=== PATIENT | female | born 1930 | race Caucasian/White ===

== ENCOUNTER 2018-08-03 16:43 | Emergency (ER) | payer MEDICARE ==
[~2018-08-03] VITALS: Ht 167.6 cm; Wt 71.0 kg
[2018-08-03 17:52] LABS: BASOPHILS # (AUTO) 0.1 X10'3 (0-0.2); BASOPHILS % (AUTO) 0.6 % (0-1); EOSINOPHILS # (AUTO) 2.7 X10'3 (0-0.9); EOSINOPHILS % (AUTO) 22.3 % (0-6); HEMATOCRIT 37.6 % (35.0-45.0); HEMOGLOBIN 12.1 g/dl (12.0-16.0); LYMPHOCYTES # (AUTO) 1.9 X10'3 (1.1-4.8); LYMPHOCYTES % (AUTO) 16.4 % (21-51); MEAN CORPUSCULAR HGB CONC 32.3 g/dL (33.0-36.5); MEAN CORPUSCULAR VOLUME 86.8 FL (78-98); MEAN PLATELET VOLUME 8.4 FL (7.4-10.4); MONOCYTES # (AUTO) 0.8 X10'3 (0-0.9); MONOCYTES % (AUTO) 7.1 % (2-12); NEUTROPHILS # (AUTO) 6.4 X10'3 (1.8-7.7); NEUTROPHILS % (AUTO) 53.6 % (42-75); PLATELET COUNT 361 X10'3 (140-440); RED BLOOD COUNT 4.33 X10'6 (4.20-5.60); RED CELL DISTRIBUTION WIDTH 15.5 % (11.5-14.5); WHITE BLOOD COUNT 11.9 X10'3 (4.5-11.0)
[2018-08-03 18:05] LABS: ALANINE AMINOTRANSFERASE 26 U/L (12-78); ALBUMIN 2.9 G/DL (3.4-5.0); ALBUMIN/GLOBULIN RATIO 0.6 (1.1-1.5); ALKALINE PHOSPHATASE 74 IU/L (46-116); ANION GAP 7 (8-16); ASPARTATE AMINO TRANSFERASE 20 U/L (10-37); BILIRUBIN,TOTAL 0.3 MG/DL (0.1-1.0); BLOOD UREA NITROGEN 19 MG/DL (7-18); BUN/CREATININE RATIO 20.9 (6.6-38.0); CALCIUM 9.3 MG/DL (8.5-10.1); CHLORIDE 100 MMOL/L (99-107); CREATININE 0.91 MG/DL (0.40-0.90); GLUCOSE 108 MG/DL (70-104); POTASSIUM 4.5 MMOL/L (3.5-5.1); SODIUM 136 MMOL/L (135-145); TOTAL CARBON DIOXIDE 28.7 MMOL/L (24-32); TOTAL PROTEIN 7.4 G/DL (6.4-8.2); eGFR 58 ML/MIN
[2018-08-03] MEDS ORDERED: piperacillin/tazo 3.375gm/50ml 50 ML IV ONE (18:50)
[2018-08-03] MEDS ORDERED: vancomycin/NS 1 GM ADD-VANTAGE 250 ML IV ONE (18:50)
[2018-08-03] MEDS ORDERED: LORazepam 2 mg/ml vial IV ONE (19:15)
[2018-08-03] MEDS ORDERED: normal saline 1000ML IV soln IVB ONE (19:15)
--- NOTE | 2018-08-03 19:20 | NUR ---
HUGO MCKEON IS POA CONTACT # [phone]
[2018-08-03] MEDS ORDERED: CLIN150C2 PO (20:14)
[2018-08-03] MEDS ORDERED: DOXY100C43 PO (20:14)
--- NOTE | 2018-08-03 20:37 | NUR ---
spoke with Codey over the phone update him on poc for pt. I let him know that pt will be going back to [facility], all questions answered. I also call [facility] and notified them that pt will be returning. [employer] [employer] has been called to transport pt.
[2018-08-03 20:40] VITALS: BP 110/82
[2018-08-05] MEDS ORDERED: ENAL20TA75 PO (02:16)
[2018-08-05] MEDS ORDERED: BUSP10TA11 PO (02:16)
[2018-08-05] MEDS ORDERED: ACET500C5 PO (02:16)
[2018-08-05] MEDS ORDERED: QUET25TA PO (02:20)
[2018-08-05] MEDS ORDERED: DOXY-257 PO (02:20)
[2018-08-05] MEDS ORDERED: METO-395 PO (02:20)
[2018-08-05] MEDS ORDERED: CLIN150C2 PO (02:20)
[2018-08-05] MEDS ORDERED: MELA1TAB28 PO (02:27)
[2018-08-05] MEDS ORDERED: MULT-16 PO (02:27)
[2018-08-05] MEDS ORDERED: TRAZ-218 PO (02:27)
[2018-08-05] MEDS ORDERED: LORA0.5T PO (02:27)
[2018-08-05] MEDS ORDERED: WHISKEY PO (02:27)
[2018-08-05] MEDS ORDERED: CHOL10002 PO (02:27)
[2018-08-05] MEDS ORDERED: ASPI-1265 PO (02:27)
[2018-08-07] MEDS ORDERED: LEVO500T2 PO (12:43)
== END 2018-08-03 21:51 | disposition home or self-care (01) ==
LOC: ER 16:45
DX: L03.115 Cellulitis of right lower limb (principal); F03.90 Unspecified dementia, unspecified severity, without behavioral disturbance, psychotic disturbance, mood disturbance, and anxiety; Z88.2 Allergy status to sulfonamides
CPT/HCPCS: 36415; 73630; 80053; 83605; 84145; 85025; 87040; 87070; 87077; 87186; 96365; 96368; 96375; 99285; J2060; J2543; J3370; J7030; 99284

== ENCOUNTER 2018-08-04 22:27 | Inpatient (IN) | payer MEDICARE | END 2018-08-07 15:35 | LOC: ER 22:27 → ED HOLD 08-05 01:52 → SUR 3N 08-05 05:40 | DX: E86.0 Dehydration (principal); W19.XXXA Unspecified fall, initial encounter; R21 Rash and other nonspecific skin eruption ==

== ENCOUNTER 2018-08-23 13:08 | Inpatient (IN) | payer MEDICARE ==
[~2018-08-23] VITALS: Ht 172.7 cm; Wt 55.0 kg
[~2018-08-23 13:08] MED LIST: ACET500C5 PO; ASPI-1265 PO; BUSP10TA11 PO; CHOL10002 PO; ENAL20TA75 PO; LORA0.5T PO; MELA1TAB28 PO; METO-395 PO; MULT-16 PO; QUET25TA PO; TRAZ-218 PO
--- NOTE | 2018-08-23 14:01 | NUR ---
patient placed on contact isolation r/o cdiff.
[2018-08-23] MEDS ORDERED: normal saline 1000ML IV soln IV ONE (14:05)
[2018-08-23] MEDS ORDERED: LORA0.5T PO (14:25)
[2018-08-23] MEDS ORDERED: ACET-2119 PO (14:26)
[2018-08-23] MEDS ORDERED: HYDR-3965 PO (14:28)
[2018-08-23] MEDS ORDERED: MELA3TAB PO (14:28)
[2018-08-23] MEDS ORDERED: ASPI81TA30 PO (14:29)
[2018-08-23] MEDS ORDERED: BUSP10TA3 PO (14:30)
[2018-08-23] MEDS ORDERED: ENAL20TA PO (14:30)
[2018-08-23] MEDS ORDERED: ACET-812 PO (14:31)
[2018-08-23] MEDS ORDERED: METO-539 PO (14:32)
[2018-08-23] MEDS ORDERED: MIRT15TA PO (14:33)
[2018-08-23 14:36] LABS: CLARITY,URINE SLIGHTLY CLOUDY (Clear); COLOR,URINE YELLOW (Yellow); GLUCOSE, URINE NEGATIVE (Neg); KETONES,URINE NEGATIVE (Neg); LEUKOCYTE ESTERASE ,URINE TRACE (Neg); NITRITES, URINE NEGATIVE (Neg); OCCULT BLOOD,URINE NEGATIVE (Neg); PROTEIN,URINE TRACE mg/dl (Neg); URINE HCG NEGATIVE (NEG); UROBILINOGEN,URINE 0.2 E.U/dL (0.2-1.0)
[2018-08-23] MEDS ORDERED: HYDR-3686 PO (14:37)
[2018-08-23] MEDS ORDERED: [UNRECOGNIZED DRUG - OTHER] TOP (14:39)
[2018-08-23] MEDS ORDERED: QUET25TA PO (14:40)
[2018-08-23] MEDS ORDERED: TRAZ-218 PO (14:41)
[2018-08-23] MEDS ORDERED: VIT1TABL50 PO (14:42)
[2018-08-23] MEDS ORDERED: CHOL100046 PO (14:42)
[2018-08-23 14:44] LABS: UA COLLECTION TYPE OTHER
[2018-08-23 14:46] LABS: BACTERIA,URINE FEW /HPF (Neg); MUCUS STRANDS FEW /LPF (Neg); RBC,URINE NONE SEEN /HPF (0-2); SQUAMOUS EPITHELIAL CELL,UR MANY /LPF (FEW); WBC,URINE 0-4 /HPF (0-4)
[2018-08-23 14:46] LABS: BASOPHILS % (AUTO) 0 % (0-1); EOSINOPHILS % (AUTO) 0.1 % (0-6); HEMATOCRIT 32.1 % (35.0-45.0); HEMOGLOBIN 10.2 g/dl (12.0-16.0); LYMPHOCYTES % (AUTO) 3.1 % (21-51); MEAN CORPUSCULAR HEMOGLOBIN 27.2 PG (27.0-31.0); MEAN CORPUSCULAR HGB CONC 31.8 g/dL (33.0-36.5); MEAN CORPUSCULAR VOLUME 85.3 FL (78-98); MEAN PLATELET VOLUME 9.1 FL (7.4-10.4); MONOCYTES # (AUTO) 1.9 X10'3 (0-0.9); MONOCYTES % (AUTO) 5.9 % (2-12); NEUTROPHILS % (AUTO) 90.9 % (42-75); PLATELET COUNT 363 X10'3 (140-440); RED BLOOD COUNT 3.77 X10'6 (4.20-5.60); RED CELL DISTRIBUTION WIDTH 17.3 % (11.5-14.5)
[2018-08-23 14:52] LABS: WHITE BLOOD COUNT 31.9 X10'3 (4.5-11.0)
[2018-08-23] MEDS ORDERED: CefTRIAXone 2gm/D5W 50ml 50 ML IV ONE (14:55)
[2018-08-23 15:06] LABS: INR 1.2 INR; PARTIAL THROMBOPLASTIN TIME 28 SECONDS (22-32)
[2018-08-23 15:13] LABS: ALANINE AMINOTRANSFERASE 50 U/L (12-78); ALBUMIN 2.1 G/DL (3.4-5.0); ALBUMIN/GLOBULIN RATIO 0.5 (1.1-1.5); ALKALINE PHOSPHATASE 99 IU/L (46-116); ANION GAP 13 (8-16); ASPARTATE AMINO TRANSFERASE 80 U/L (10-37); BILIRUBIN,TOTAL 0.4 MG/DL (0.1-1.0); BLOOD UREA NITROGEN 66 MG/DL (7-18); BUN/CREATININE RATIO 20.4 (6.6-38.0); CALCIUM 8.7 MG/DL (8.5-10.1); CHLORIDE 111 MMOL/L (99-107); CREATININE 3.24 MG/DL (0.40-0.90); GLUCOSE 136 MG/DL (70-104); MAGNESIUM 2.4 MG/DL (1.5-2.4); POTASSIUM 4.2 MMOL/L (3.5-5.1); SODIUM 148 MMOL/L (135-145); TOTAL CARBON DIOXIDE 23.9 MMOL/L (24-32); TOTAL PROTEIN 6.5 G/DL (6.4-8.2); eGFR 13 ML/MIN
--- NOTE | 2018-08-23 15:20 | NUR ---
excoriation to inner buttock aea,picture taken,kimberly care provided.urine and stool specimen sent to lab.continue with contact precaution r/o cdiff.
--- NOTE | 2018-08-23 15:47 | NUR ---
stool sent to lab too formed,will continue to monitor.
[2018-08-23 15:50] LABS: TOTAL CELLS COUNTED 100
[2018-08-23 15:53] LABS: ANISOCYTOSIS 1+; PLATELET ESTIMATE NORMAL; POLYCHROMASIA FEW
[2018-08-23 15:54] LABS: HYPOCHROMASIA 1+; SCHISTOCYTES FEW; TEAR DROP CELLS FEW
[2018-08-23 15:58] LABS: TOXIC GRANULATION 3+
[2018-08-23 15:59] LABS: TOXIC VACUOLATION 1+
[2018-08-23] MEDS ORDERED: metroNIDAZOLE-Flagyl 500mg/NS 100 ML IV STA (16:10)
[2018-08-23] MEDS ORDERED: metroNIDAZOLE 500mg tablet PO ONE (16:15)
[2018-08-23] MEDS ORDERED: normal saline 1000ML IV soln IVB ONE (16:15)
[2018-08-23] MEDS ORDERED: ondansetron/PF 4mg/2ml inj IV PRN (16:40)
[2018-08-23] MEDS ORDERED: magnesium 2GM in 50ml NS 50 ML IV PRN (16:40)
[2018-08-23] MEDS ORDERED: magnesium Cl slow-release 64mg tablet PO PRN (16:40)
[2018-08-23] MEDS ORDERED: magnesium 4gm in 100ml NS 100 ML IV PRN (16:40)
[2018-08-23] MEDS ORDERED: acetaminophen 325mg tablet PO PRN ×2 (16:40)
[2018-08-23] MEDS ORDERED: potassium Cl 20 mEq SR tablet PO PRN ×2 (16:40)
[2018-08-23] MEDS ORDERED: potassium Cl 40MEQ/NS 500ml 500 ML IV PRN ×2 (16:40)
--- NOTE | 2018-08-23 16:40 | NUR ---
patient still with clean kimberly area,repositioned for comfort,picture taken to left heel and superior plantar area,dorsal right and left foot +lateral area, 2x2 dressing applied with non adherent pads,kerlix and oumou wrap.Dr. Bueno present.
--- NOTE | 2018-08-23 16:52 | NUR ---
PT SON MIKE IS POA HIS CONTACT NUMBER IS [phone], UPDATED SON ON POC.
[2018-08-23] MEDS ORDERED: vancomycin/NS 1 GM ADD-VANTAGE 250 ML X 1 DOSE IV ONE (16:55)
[2018-08-23 18:00] VITALS: BP 139/50
--- NOTE | 2018-08-23 18:43 | NUR ---
Problems reprioritized. Patient report given, questions answered & plan of care reviewed with TERELL Luna.
--- NOTE | 2018-08-23 18:45 | NUR ---
Patient in room PCU 3019. I have received report from Ninfa FIGUEREDO and had the opportunity to ask questions and assume patient care.
--- NOTE | 2018-08-23 19:00 | NUR ---
Following shift report pt, was approached by this nurse. Alert, very confused, unintelligible. Unable to complete admitting information process. Will advise DAY shift to include son in obtaining this information.
[2018-08-23] MEDS: normal saline 1000ml 1,000 ML IV SCH (19:08)
[2018-08-23] MEDS: HYDROcodone/acetaminophen 5mg/325mg tablet PO PRN (19:55)
[2018-08-23] MEDS: heparin, porcine 5000 units/ml vial SQ SCH (19:58)
[2018-08-23] MEDS ORDERED: temazepam 15mg capsule PO PRN (21:00)
[2018-08-23 22:00] VITALS: BP 93/71
--- NOTE | 2018-08-23 22:00 | NUR ---
Pt. cont. incont of urine and liquid stool, screaming when staff provides kimberly care. Ikmberly/anal area very reddened and excoriated, bleeding in some areas when gently cleaned. MD notified and orders given. Carver placed, immed. draining lge amt sonya urine, barrier cream applied, repositioned freq. Pt. screams out w/all mvmt. Placed on [employer] in order to obtain current, accurate information regarding HR and rhythm, BP, and O2 sats. Heels elevated and floated f/comfort. Drsgs remain to feet bilat, CDI. Pt. C/O pain w/all mvmt of lower exts. Refusing offers of PO food or fluid.
[2018-08-23] MEDS ORDERED: loperamide 2mg capsule PO PRN (23:05)
[2018-08-24 02:00] VITALS: BP 114/49
[2018-08-24] MEDS: normal saline 1000ml 1,000 ML IV SCH (04:11)
[2018-08-24] MEDS: morphine 2 MG/ML inj. syringe IV PRN ×3 (04:31→20:45)
[2018-08-24 06:00] VITALS: BP 114/42
[2018-08-24 06:12] LABS: BASOPHILS # (AUTO) 0.1 X10'3 (0-0.2); BASOPHILS % (AUTO) 0.3 % (0-1); EOSINOPHILS % (AUTO) 0.1 % (0-6); HEMATOCRIT 30.6 % (35.0-45.0); HEMOGLOBIN 9.7 g/dl (12.0-16.0); LYMPHOCYTES # (AUTO) 1.5 X10'3 (1.1-4.8); MEAN CORPUSCULAR HEMOGLOBIN 27.3 PG (27.0-31.0); MEAN CORPUSCULAR HGB CONC 31.7 g/dL (33.0-36.5); MEAN CORPUSCULAR VOLUME 86.1 FL (78-98); MEAN PLATELET VOLUME 9.6 FL (7.4-10.4); MONOCYTES # (AUTO) 2.2 X10'3 (0-0.9); MONOCYTES % (AUTO) 7.2 % (2-12); NEUTROPHILS # (AUTO) 26.4 X10'3 (1.8-7.7); NEUTROPHILS % (AUTO) 87.4 % (42-75); PLATELET COUNT 350 X10'3 (140-440); RED BLOOD COUNT 3.55 X10'6 (4.20-5.60); RED CELL DISTRIBUTION WIDTH 16.6 % (11.5-14.5)
[2018-08-24 06:25] LABS: WHITE BLOOD COUNT 30.2 X10'3 (4.5-11.0)
[2018-08-24] MEDS ORDERED: vancomycin/NS 1 GM ADD-VANTAGE 250 ML IV PRN (06:30)
[2018-08-24 06:36] LABS: ALANINE AMINOTRANSFERASE 46 U/L (12-78); ALBUMIN 1.6 G/DL (3.4-5.0); ALBUMIN/GLOBULIN RATIO 0.4 (1.1-1.5); ALKALINE PHOSPHATASE 91 IU/L (46-116); ANION GAP 16 (8-16); ASPARTATE AMINO TRANSFERASE 72 U/L (10-37); BILIRUBIN,TOTAL 0.4 MG/DL (0.1-1.0); BLOOD UREA NITROGEN 58 MG/DL (7-18); BUN/CREATININE RATIO 26.7 (6.6-38.0); CALCIUM 7.5 MG/DL (8.5-10.1); CHLORIDE 119 MMOL/L (99-107); CREATININE 2.17 MG/DL (0.40-0.90); GLUCOSE 104 MG/DL (70-104); MAGNESIUM 2.1 MG/DL (1.5-2.4); POTASSIUM 3.7 MMOL/L (3.5-5.1); TOTAL CARBON DIOXIDE 18.4 MMOL/L (24-32); TOTAL PROTEIN 5.3 G/DL (6.4-8.2); eGFR 21 ML/MIN
[2018-08-24 06:45] LABS: SODIUM 153 MMOL/L (135-145)
--- NOTE | 2018-08-24 06:47 | NUR ---
Problems reprioritized. Patient report given, questions answered & plan of care reviewed with Sharla FIGUEREDO.
--- NOTE | 2018-08-24 07:05 | NUR ---
Sent to [facility] room 3019, Nila Richards: Critical labs this morning 08/24 resulted: Na: 153 Cl: 119 WBC:30.2 Patient is on NS @ 100ml/hr
[2018-08-24 07:46] LABS: VANCOMYCIN,RANDOM 10.5 UG/ML
[2018-08-24 07:49] LABS: TOTAL CELLS COUNTED 100
[2018-08-24 07:52] LABS: ANISOCYTOSIS 1+; PLATELET ESTIMATE NORMAL; POLYCHROMASIA FEW; SCHISTOCYTES FEW; TEAR DROP CELLS FEW; TOXIC GRANULATION 3+; TOXIC VACUOLATION 1+
[2018-08-24] MEDS ORDERED: VANCOMYCIN LEVEL IV SCH (08:00)
[2018-08-24] MEDS: K and/or MAG REPLACEMENT MC SCH (08:00)
[2018-08-24] MEDS: sodium chloride 0.45% 1,000 ML IV SCH ×2 (08:38→19:00)
[2018-08-24] MEDS: heparin, porcine 5000 units/ml vial SQ SCH ×2 (09:16→20:45)
[2018-08-24] MEDS: vancomycin 250MG/10ML UD oral solution 10ML BOTTLE PO SCH ×3 (09:17→20:45)
[2018-08-24] MEDS ORDERED: vancomycin/NS 1 GM ADD-VANTAGE 250 ML IV ONE (10:34)
[2018-08-24 11:00] VITALS: BP 90/59
[2018-08-24 11:34] LABS: C DIFF ANTIGEN POSITIVE (NEGATIVE); C DIFF SPECIMEN=DIARRHEA? ACCEPTABLE; C DIFFICILE TOXINS A&B POSITIVE (Neg)
--- NOTE | 2018-08-24 11:38 | NUR ---
Sent to [facility] MESSAGE: room 3019 A; Nila Richards: Patient has a positive CDIFF lab result. Thank you, Sharla
[2018-08-24 13:51] LABS: HEMATOCRIT 33.5 % (35.0-45.0); HEMOGLOBIN 10.7 g/dl (12.0-16.0); MEAN CORPUSCULAR HEMOGLOBIN 27.2 PG (27.0-31.0); MEAN CORPUSCULAR HGB CONC 31.9 g/dL (33.0-36.5); MEAN CORPUSCULAR VOLUME 85.2 FL (78-98); MEAN PLATELET VOLUME 9.6 FL (7.4-10.4); PLATELET COUNT 416 X10'3 (140-440); RED BLOOD COUNT 3.93 X10'6 (4.20-5.60); RED CELL DISTRIBUTION WIDTH 16.9 % (11.5-14.5)
[2018-08-24 13:55] LABS: WHITE BLOOD COUNT 37.9 X10'3 (4.5-11.0)
--- NOTE | 2018-08-24 14:10 | NUR ---
Sent to [facility] MESSAGE: Rm [id number]; Nila Richards: Erin Joiner, lab just called me and WBC count is up from 30.2 to 37.9. Patients vital signs are 103/45, HR 64, RR 20, and patient was desating to 82% O2. I put 3 L on NC to increase sats. O2 is now 99% on 1 L
--- NOTE | 2018-08-24 14:40 | NUR ---
Accidentally threw away morphine vial before scanned. Performed waste with TERELL Camacho.
[2018-08-24 15:06] LABS: TOTAL CELLS COUNTED 100
[2018-08-24 15:07] LABS: ANISOCYTOSIS 1+; PLATELET ESTIMATE NORMAL
[2018-08-24 15:08] LABS: ELLIPTOCYTES FEW; POLYCHROMASIA FEW
[2018-08-24 15:09] LABS: TOXIC GRANULATION 2+; TOXIC VACUOLATION 1+
[2018-08-24] MEDS: piperacillin/tazo 3.375gm/50ml 50 ML IV SCH ×2 (17:19→23:42)
[2018-08-24 18:00] VITALS: BP 96/43
--- NOTE | 2018-08-24 18:13 | NUR ---
Sent to [facility] MESSAGE: Rm [id number] Nila Richards: Sofía sorry to page you again, but this patient has had a urine output of 200 ml this past 12 hrs. Thank you, Sharla
--- NOTE | 2018-08-24 19:00 | NUR ---
Patient Nila Richards in room 3019A has only had an output of 200mL all day shift. [facility] [address] DR Gutierrez
--- NOTE | 2018-08-24 19:20 | NUR ---
PAGER ID: [phone] MESSAGE: Patient Nila Richards in room 3019A has only had an output of 200mL all day shift. [facility] 4238
--- NOTE | 2018-08-24 20:00 | NUR ---
order for 1 L NS bolus I Memo RN
[2018-08-24] MEDS ORDERED: normal saline 1000ml 1,000 ML IVB ONE (20:05)
[2018-08-24] MEDS: busPIRone 5mg tablet PO SCH (20:46)
[2018-08-24] MEDS: dextrose 5%-1/2 normal saline 1,000 ML IV SCH (21:00)
[2018-08-24] MEDS ORDERED: QUEtiapine 25mg tablet PO SCH (21:00)
--- NOTE | 2018-08-24 21:00 | NUR ---
Call DR Gutierrez urine output les than 20 ml in hours order foe 1 L more ADAL Hampton RN
[2018-08-24 22:00] VITALS: BP 125/60
--- NOTE | 2018-08-24 22:00 | NUR ---
Rapid respond call foe BP 73/39 Order CBC ,CMP ,LA contin NS bolus I Memo RN
[2018-08-24 23:00] LABS: BASOPHILS # (AUTO) 0.1 X10'3 (0-0.2); BASOPHILS % (AUTO) 0.3 % (0-1); EOSINOPHILS # (AUTO) 0.1 X10'3 (0-0.9); EOSINOPHILS % (AUTO) 0.4 % (0-6); HEMATOCRIT 30.1 % (35.0-45.0); HEMOGLOBIN 9.7 g/dl (12.0-16.0); LYMPHOCYTES # (AUTO) 2.5 X10'3 (1.1-4.8); LYMPHOCYTES % (AUTO) 7.2 % (21-51); MEAN CORPUSCULAR HEMOGLOBIN 27.7 PG (27.0-31.0); MEAN CORPUSCULAR HGB CONC 32.3 g/dL (33.0-36.5); MEAN CORPUSCULAR VOLUME 85.6 FL (78-98); MEAN PLATELET VOLUME 9.2 FL (7.4-10.4); MONOCYTES # (AUTO) 2.7 X10'3 (0-0.9); MONOCYTES % (AUTO) 7.9 % (2-12); NEUTROPHILS % (AUTO) 84.2 % (42-75); PLATELET COUNT 357 X10'3 (140-440); RED BLOOD COUNT 3.51 X10'6 (4.20-5.60); RED CELL DISTRIBUTION WIDTH 16.8 % (11.5-14.5)
[2018-08-24 23:03] LABS: WHITE BLOOD COUNT 34.4 X10'3 (4.5-11.0)
[2018-08-24 23:29] LABS: ANISOCYTOSIS 1+; ELLIPTOCYTES FEW; PLATELET ESTIMATE NORMAL; TOTAL CELLS COUNTED 100; TOXIC GRANULATION 2+
[2018-08-24 23:30] LABS: POLYCHROMASIA FEW
[2018-08-24 23:39] LABS: ALBUMIN 1.2 G/DL (3.4-5.0); ANION GAP 16 (8-16); BLOOD UREA NITROGEN 61 MG/DL (7-18); BUN/CREATININE RATIO 27.2 (6.6-38.0); CHLORIDE 120 MMOL/L (99-107); CREATININE 2.24 MG/DL (0.40-0.90); GLUCOSE 136 MG/DL (70-104); POTASSIUM 3.6 MMOL/L (3.5-5.1); SODIUM 153 MMOL/L (135-145); TOTAL CARBON DIOXIDE 16.6 MMOL/L (24-32); eGFR 21 ML/MIN
[2018-08-25] MEDS: vancomycin 250MG/10ML UD oral solution 10ML BOTTLE PO SCH ×3 (01:36→14:00)
[2018-08-25 02:00] VITALS: BP 89/37
[2018-08-25] MEDS ORDERED: albumin (human) 25% 100 ML IV solution IV ONE (02:30)
[2018-08-25] MEDS ORDERED: normal saline 1000ml 1,000 ML IVB ONE (02:30)
[2018-08-25] MEDS ORDERED: VANCOMYCIN LEVEL IV SCH (03:00)
[2018-08-25] MEDS: sodium chloride 0.45% 1,000 ML IV SCH (04:00)
[2018-08-25 06:00] VITALS: BP 95/62
[2018-08-25 06:04] LABS: BASOPHILS # (AUTO) 0.1 X10'3 (0-0.2); BASOPHILS % (AUTO) 0.2 % (0-1); EOSINOPHILS # (AUTO) 0.2 X10'3 (0-0.9); EOSINOPHILS % (AUTO) 0.6 % (0-6); HEMATOCRIT 28.1 % (35.0-45.0); HEMOGLOBIN 9.1 g/dl (12.0-16.0); LYMPHOCYTES # (AUTO) 2.1 X10'3 (1.1-4.8); LYMPHOCYTES % (AUTO) 5.9 % (21-51); MEAN CORPUSCULAR HEMOGLOBIN 27.7 PG (27.0-31.0); MEAN CORPUSCULAR HGB CONC 32.4 g/dL (33.0-36.5); MEAN CORPUSCULAR VOLUME 85.5 FL (78-98); MEAN PLATELET VOLUME 9.4 FL (7.4-10.4); MONOCYTES # (AUTO) 2.2 X10'3 (0-0.9); MONOCYTES % (AUTO) 6.3 % (2-12); NEUTROPHILS # (AUTO) 30.8 X10'3 (1.8-7.7); PLATELET COUNT 316 X10'3 (140-440); RED BLOOD COUNT 3.29 X10'6 (4.20-5.60); RED CELL DISTRIBUTION WIDTH 17.4 % (11.5-14.5)
[2018-08-25 06:16] LABS: WHITE BLOOD COUNT 35.4 X10'3 (4.5-11.0)
[2018-08-25 06:30] LABS: ALANINE AMINOTRANSFERASE 44 U/L (12-78); ALBUMIN 2.4 G/DL (3.4-5.0); ALBUMIN/GLOBULIN RATIO 0.9 (1.1-1.5); ALKALINE PHOSPHATASE 79 IU/L (46-116); ANION GAP 13 (8-16); ASPARTATE AMINO TRANSFERASE 69 U/L (10-37); BILIRUBIN,TOTAL 0.6 MG/DL (0.1-1.0); BLOOD UREA NITROGEN 59 MG/DL (7-18); BUN/CREATININE RATIO 26.7 (6.6-38.0); CALCIUM 7.2 MG/DL (8.5-10.1); CHLORIDE 121 MMOL/L (99-107); CREATININE 2.21 MG/DL (0.40-0.90); GLUCOSE 154 MG/DL (70-104); MAGNESIUM 2.1 MG/DL (1.5-2.4); POTASSIUM 3.3 MMOL/L (3.5-5.1); SODIUM 152 MMOL/L (135-145); TOTAL CARBON DIOXIDE 17.7 MMOL/L (24-32); TOTAL PROTEIN 5.1 G/DL (6.4-8.2); eGFR 21 ML/MIN
[2018-08-25] MEDS: dextrose 5%-1/2 normal saline 1,000 ML IV SCH ×2 (06:30→08:26)
[2018-08-25 06:46] LABS: PLATELET ESTIMATE NORMAL; TOTAL CELLS COUNTED 100
[2018-08-25 06:47] LABS: ANISOCYTOSIS 1+; POLYCHROMASIA 1+; TOXIC GRANULATION 3+
[2018-08-25 06:48] LABS: ELLIPTOCYTES FEW
[2018-08-25] MEDS ORDERED: LIDOcaine 1% 30ml vial 5 ML in potassium Cl 40MEQ/NS 500ml 500 ML IV ONE (07:10)
[2018-08-25] MEDS: busPIRone 5mg tablet PO SCH (07:31)
[2018-08-25] MEDS: heparin, porcine 5000 units/ml vial SQ SCH (07:31)
[2018-08-25] MEDS: HYDROcodone/acetaminophen 5mg/325mg tablet PO PRN (07:32)
[2018-08-25] MEDS ORDERED: metroNIDAZOLE-Flagyl 500mg/NS 100 ML IV SCH (08:00)
[2018-08-25] MEDS: K and/or MAG REPLACEMENT MC SCH (08:00)
--- NOTE | 2018-08-25 09:39 | NUR ---
RN spoke with Dr. Meyers re. pt's code status. DNR form is in chart, signed by pt's son (SACHIN) Codey. RN called and spoke with Codey to confirm pt's DNR status. Pt. is currently a FULL CODE. Codey confirmed that pt. is a DNR. RN relayed info. to Dr. Meyers who stated she will change code status to DNR and will call Codey later this shift to discuss plan of care, possibly hospice.
--- NOTE | 2018-08-25 10:08 | NUR ---
Micro called to report + MRSA nasal swab. window installation subcontractor notified. Will notify Dr. Meyers.
--- NOTE | 2018-08-25 10:22 | NUR ---
Pt. son Kody and his here visiting pt. RN notified them of pt's condition.
[2018-08-25 11:00] VITALS: BP 94/50
[2018-08-25] MEDS: morphine 2 MG/ML inj. syringe IV PRN ×2 (12:35→23:08)
--- NOTE | 2018-08-25 13:04 | NUR ---
Pt. has been yelling out. Appears frightened at times. Medicated with Morphine per order.
--- NOTE | 2018-08-25 14:10 | NUR ---
Pt. unable to safely swallow oral Vancomycin.
--- NOTE | 2018-08-25 14:31 | NUR ---
Orders received for comfort care.
[2018-08-25] MEDS: morphine 10mg/0.5ml (conc. morphine) oral syringe PO PRN ×2 (14:49→21:54)
--- NOTE | 2018-08-25 14:56 | NUR ---
Pt. noted to be grimacing, yelling out with repositioning. Medicated with Roxanol.
--- NOTE | 2018-08-25 18:00 | NUR ---
Patient in room PCU 3019. I have received report from TERELL VICTORIA and had the opportunity to ask questions and assume patient care. PATIENT ASLEEP FOR PATIENT REPORT. WILL CONTINUE TO MONITOR CLOSELY.
--- NOTE | 2018-08-25 18:09 | NUR ---
Problems reprioritized. Patient report given, questions answered & plan of care reviewed with Kirill/Ramirez RNs.
[2018-08-25 19:00] VITALS: BP 94/65
[2018-08-25] MEDS: docusate sod 100mg capsule PO SCH (19:35)
[2018-08-26] MEDS: morphine 10mg/0.5ml (conc. morphine) oral syringe PO PRN (02:21)
[2018-08-26] MEDS ORDERED: LORazepam 2 mg/ml vial IV PRN (03:20)
--- NOTE | 2018-08-26 05:59 | NUR ---
[facility] documentation: I have reviewed and agree with all interventions, assessments performed and documented by Ramirez. [facility] Medication Administration: For this medication-pass time frame, all medication were reviewed, dispensed, administered and documented per hospital policy by Ramirez FIGUEREDO.
[2018-08-26 07:00] VITALS: BP 72/42
[2018-08-26] MEDS: docusate sod 100mg capsule PO SCH (07:08)
--- NOTE | 2018-08-26 10:38 | NUR ---
Dr. Mack at bedside. Orders received to D/C Colace & tele monitor.
[2018-08-26] MEDS: morphine 2 MG/ML inj. syringe IV PRN (10:56)
--- NOTE | 2018-08-26 12:13 | NUR ---
Pt has been made DNR w/ comfort care. Will follow per protocol. Addendum: 08/26/18 at [address] Amended: Links added.
--- NOTE | 2018-08-26 18:43 | NUR ---
Problems reprioritized. Patient report given, questions answered & plan of care reviewed with TERELL Roy.
--- NOTE | 2018-08-26 19:18 | NUR ---
Patient in room PCU 3019. I have received report from TERELL BARNES and had the opportunity to ask questions and assume patient care.
--- NOTE | 2018-08-26 23:47 | NUR ---
PATIENT AT 2157 ON AUGUST 26, 2018. DR. KHANNA NOTIFIED OF SITUATION. BOTH ZORAIDA MALONE AND ANTONIO MALONE NOTIFIED VIA TELEPHONE AND MESSAGES LEFT TO CONTACT [facility] AT EARLIEST CONVENIENCE. DONOR ROCÍO DENIED PATIENT FOR ORGAN DONATION GIVEN PERTINENT HEALTH INFORMATION. 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 PATIENT EXITED FLOOR WITH [employer] STA[facility] AT [phone].
== END 2018-08-26 23:28 | disposition expired | DRG 871 ==
LOC: ER 13:09 → PCU 3S 18:01 → CMPBEDREQ 19:04
PROVIDERS: ADMIT Internal Medicine; ATTEND Internal Medicine
DX: A41.9 Sepsis, unspecified organism (principal); G93.41 Metabolic encephalopathy; N17.9 Acute kidney failure, unspecified; A04.72 Enterocolitis due to Clostridium difficile, not specified as recurrent; L03.116 Cellulitis of left lower limb; E87.2 Acidosis; E87.0 Hyperosmolality and hypernatremia; F03.90 Unspecified dementia, unspecified severity, without behavioral disturbance, psychotic disturbance, mood disturbance, and anxiety; L89.92 Pressure ulcer of unspecified site, stage 2; R65.20 Severe sepsis without septic shock; E87.6 Hypokalemia; E86.0 Dehydration; Z66 Do not resuscitate; Z51.5 Encounter for palliative care; Z99.3 Dependence on wheelchair; Z79.899 Other long term (current) drug therapy; Z79.82 Long term (current) use of aspirin; Z88.1 Allergy status to other antibiotic agents; Z88.2 Allergy status to sulfonamides; Z88.8 Allergy status to other drugs, medicaments and biological substances
CPT/HCPCS: 36415; 71045; 73718; 74176; 80048; 80053; 80202; 81001; 81025; 83605; 83735; 84145; 85025; 85610; 85651; 85730; 87040; 87070; 87088; 87324; 87449; 93005; 96361; 96365; 96367; 97110; 97162; 99291; G0378; J0696; J1644; J2060; J2270; J2543; J3370; J3480; J3490; J7030; P9047